=== PATIENT | male | born 1975 | race African-American/Black ===

== ENCOUNTER 2019-06-14 01:21 | Emergency (ER) | payer OTHER ==
[~2019-06-14] VITALS: Ht 175 cm; Wt 92.0 kg
[2019-06-14] MEDS ORDERED: PANTOPRAZOLE 40 MG (PROTONIX) VIAL IV STA (01:35)
[2019-06-14] MEDS ORDERED: NS IV 1000 ML 1,000 ML IV STA ×2 (01:35→03:10)
[2019-06-14] MEDS ORDERED: KETOROLAC 30 MG/ML VIAL IVP STA (01:35)
[2019-06-14] MEDS ORDERED: fentaNYL INJECTION 100 MCG/2 ML AMP IVP STA (01:35)
[2019-06-14 01:37] LABS: HEMATOCRIT 50 % (40-54); HEMOGLOBIN 16.6 G/DL (13.3-17.7); LYMPHOCYTES % (AUTO) 24 % (12-44); MEAN CORPUSCULAR HEMOGLOBIN 29 PG (25-34); MEAN CORPUSCULAR HGB CONC 34 G/DL (32-36); MEAN CORPUSCULAR VOLUME 88 FL (80-99); MEAN PLATELET VOLUME 8.5 FL (7.4-10.4); NEUTROPHILS % (AUTO) 55 % (42-75); PLATELET COUNT 392 10^3/uL (130-400); WHITE BLOOD COUNT 9.2 10^3/uL (4.3-11.0)
[2019-06-14 01:38] LABS: BASOPHILS % (AUTO) 0 % (0-10); EOSINOPHILS # (AUTO) 0.5 10^3/uL (0.0-0.3); EOSINOPHILS % (AUTO) 6 % (0-10); LYMPHOCYTES # (AUTO) 2.2 X 10^3 (1.0-4.0); MONOCYTES # (AUTO) 1.3 X 10^3 (0.0-1.0); MONOCYTES % (AUTO) 14 % (0-12); NEUTROPHILS # (AUTO) 5.1 X 10^3 (1.8-7.8)
--- NOTE | 2019-06-14 01:41 | ED Abdominal Pain ---
General Chief Complaint: Abdominal/GI Problems Stated Complaint: ABD PAIN Source of Information: Patient History of Present Illness Date Seen by Provider: Jun 14, 2019 Time Seen by Provider: 01:24 Initial Comments 43 yo M presenting with abdominal cramping and pain. He has had 2 days of diarrhea and cramping but it became worse about 2 hours ago. He woke up with epigastric and periumbilical pain. He was having multiple episodes of diarrhea in the last 2 days. he now has a bloated abdomen and feels like he has a lot of gas and pain in his abdomen. He denies any pain with urination. He has not seen any blood in his diarrhea. He has had nausea but no vomiting. He is in town for work from [employer] but has been sick and not able to work. he denies fever but has had chills. He has not taken anything for pain. He had some cottage cheese and a bottom steep tender today but that made his stomach feel worse so he stopped eating. Allergies and Home Medications Allergies Coded Allergies: No Known Drug Allergies (Unverified , 06/14/19) Home Medications Dicyclomine HCl 20 Mg Tablet, 20 MG PO Q6H PRN for abdominal pain/cramping Prescribed by: ERLIN BROOKE on 06/14/19 0313 Patient Home Medication List Home Medication List Reviewed: Yes Review of Systems Review of Systems Constitutional: chills; No fever; malaise EENTM: No Symptoms Reported Respiratory: No Symptoms Reported Cardiovascular: No Symptoms Reported Gastrointestinal: See HPI Genitourinary: No Symptoms Reported Musculoskeletal: no symptoms reported Skin: no symptoms reported Psychiatric/Neurological: No Symptoms Reported Past Ebenfzc-Ytszup-Wgtmed Hx Past Med/Social Hx: Reviewed Nursing Past Med/Soc Hx Patient Social History Alcohol Use: Denies Use Recreational Drug Use: Yes Drug of Choice: MARIJUANA Type Used: Smokeless Tobacco 2nd Hand Smoke Exposure: No Recent Foreign Travel: No Contact w/Someone Who Travel: No Recent Hopitalizations: No Physical Abuse: No Sexual Abuse: No Past Medical History Surgeries: Yes Appendectomy, Orthopedic Respiratory: No Cardiac: No Neurological: No Genitourinary: No Gastrointestinal: No Musculoskeletal: No Endocrine: No HEENT: No Cancer: No Psychosocial: No Integumentary: No Blood Disorders: No Physical Exam Vital Signs Vital Signs - First Documented 06/14/19 01:26 Pulse 100 Resp 20 B/P (MAP) 125/91 (102) Pulse Ox 98 O2 Delivery Room Air Capillary Refill : Height/Weight/BMI Height: '" Weight: lbs. oz. kg; BMI Method: General Appearance: WD/WN, moderate distress (moaning and complaining of abdominal pain and cramping with bloating and gas feeling) HEENT: PERRL/EOMI, pharynx normal Neck: non-tender, supple Respiratory: chest non-tender, lungs clear, normal breath sounds, no respiratory distress, no accessory muscle use Cardiovascular: normal peripheral pulses, regular rate, rhythm Gastrointestinal: soft, no pulsatile mass, tenderness (epigastric) Extremities: normal range of motion, normal capillary refill Neurologic/Psychiatric: aged or disabled carer II-XII nml as tested, alert, oriented x 3 Skin: normal color, warm/dry Progress/Results/Core Measures Results/Orders Lab Results Laboratory Tests Test 06/14/19 01:30 06/14/19 03:00 Range/Units White Blood Count 9.2 4.3-11.0 10^3/uL Red Blood Count 5.65 4.35-5.85 10^6/uL Hemoglobin 16.6 13.3-17.7 G/DL Hematocrit 50 40-54 % Mean Corpuscular Volume 88 80-99 FL Mean Corpuscular Hemoglobin 29 25-34 PG Mean Corpuscular Hemoglobin Concent 34 32-36 G/DL Red Cell Distribution Width 13.0 10.0-14.5 % Platelet Count 392 130-400 10^3/uL Mean Platelet Volume 8.5 7.4-10.4 FL Neutrophils (%) (Auto) 55 42-75 % Lymphocytes (%) (Auto) 24 12-44 % Monocytes (%) (Auto) 14 H 0-12 % Eosinophils (%) (Auto) 6 0-10 % Basophils (%) (Auto) 0 0-10 % Neutrophils # (Auto) 5.1 1.8-7.8 X 10^3 Lymphocytes # (Auto) 2.2 1.0-4.0 X 10^3 Monocytes # (Auto) 1.3 H 0.0-1.0 X 10^3 Eosinophils # (Auto) 0.5 H 0.0-0.3 10^3/uL Basophils # (Auto) 0.0 0.0-0.1 10^3/uL Sodium Level 136 135-145 MMOL/L Potassium Level 3.7 3.6-5.0 MMOL/L Chloride Level 98 98-107 MMOL/L Carbon Dioxide Level 24 21-32 MMOL/L Anion Gap 14 5-14 MMOL/L Blood Urea Nitrogen 8 7-18 MG/DL Creatinine 1.11 0.60-1.30 MG/DL Estimat Glomerular Filtration Rate > 60 BUN/Creatinine Ratio 7 Glucose Level 99 70-105 MG/DL Calcium Level 9.5 8.5-10.1 MG/DL Corrected Calcium 9.3 8.5-10.1 MG/DL Total Bilirubin 0.8 0.1-1.0 MG/DL Aspartate Amino Transf (AST/SGOT) 28 5-34 U/L Alanine Aminotransferase (ALT/SGPT) 28 0-55 U/L Alkaline Phosphatase 78 40-136 U/L Total Protein 8.0 6.4-8.2 GM/DL Albumin 4.3 3.2-4.5 GM/DL Lipase 21 8-78 U/L Serum Alcohol 22 H <10 MG/DL Urine Color YELLOW Urine Clarity CLEAR Urine pH 6.5 5-9 Urine Specific Taylor 1.025 H 1.016-1.022 Urine Protein TRACE NEGATIVE Urine Glucose (UA) NEGATIVE NEGATIVE Urine Ketones TRACE H NEGATIVE Urine Nitrite NEGATIVE NEGATIVE Urine Bilirubin 1+ H NEGATIVE Urine Urobilinogen 0.2 < = 1.0 MG/DL Urine Leukocyte Esterase NEGATIVE NEGATIVE Urine RBC (Auto) NEGATIVE NEGATIVE Urine RBC NONE /HPF Urine WBC NONE /HPF Urine Squamous Epithelial Cells 0-2 /HPF Urine Crystals NONE /LPF Urine Bacteria NEGATIVE /HPF Urine Casts NONE /LPF Urine Mucus MODERATE H /LPF Urine Culture Indicated NO Urine Opiates Screen NEGATIVE NEGATIVE Urine Oxycodone Screen NEGATIVE NEGATIVE Urine Methadone Screen NEGATIVE NEGATIVE Urine Propoxyphene Screen NEGATIVE NEGATIVE Urine Barbiturates Screen NEGATIVE NEGATIVE Ur Tricyclic Antidepressants Screen NEGATIVE NEGATIVE Urine Phencyclidine Screen NEGATIVE NEGATIVE Urine Amphetamines Screen POSITIVE H NEGATIVE Urine Methamphetamines Screen POSITIVE H NEGATIVE Urine Benzodiazepines Screen NEGATIVE NEGATIVE Urine Cocaine Screen NEGATIVE NEGATIVE Urine Cannabinoids Screen POSITIVE H NEGATIVE My Orders Orders - ERLIN BROOKE MD Comprehensive Metabolic Panel (06/14/19 01:28) Lipase (06/14/19 01:28) Ua Culture If Indicated (06/14/19 01:28) Ed Iv/Invasive Line Start (06/14/19 01:28) Cbc With Automated Diff (06/14/19 01:28) Ct Abdomen/Pelvis Wo (06/14/19 01:28) Drug Screen Stat (Urine) (06/14/19 01:28) Alcohol (06/14/19 01:28) Ns Iv 1000 Ml (Sodium Chloride 0.9%) (06/14/19 01:35) Ketorolac Injection (Toradol Injection) (06/14/19 01:35) Fentanyl Injection (Sublimaze Injection (06/14/19 01:35) Pantoprazole Injection (Protonix Injecti (06/14/19 01:35) Dicyclomine Injection (Bentyl Injection) (06/14/19 03:02) Dicyclomine Injection (Bentyl Injection) (06/14/19 03:06) Ns Iv 1000 Ml (Sodium Chloride 0.9%) (06/14/19 03:10) Vital Signs/I&O 06/14/19 06/14/19 01:26 03:43 Pulse 100 83 Resp 20 16 B/P (MAP) 125/91 (102) 140/86 Pulse Ox 98 99 O2 Delivery Room Air Room Air Progress Progress Note #1: Progress Note check labs and CT scan of abdomen/pelvis to evaluate his pain and bloating with cramping. Give IVF for hydration, Toradol and fentanyl for pain, Protonix for epigastric pain and possible gastritis, Zofran for nausea. Progress Note #2: Progress Note CBC and Chemistry do not show acute significant abnormality to account for his symptoms. His alcohol level is 22. He feels a little better after treatment in the ED. CT scan shows findings for gastroenteritis but no acute surgical abdomen findings. Progress Note #3: Progress Note UA shows mild concentration with Specific gravity of 1.025. Drug screen positive for methamphetamine and marijuana. Encouraged to push fluids and rest. Check with clinic if needed for continued concerns. Advised to avoid alcohol and drugs as they would just get him more dehydrated Diagnostic Imaging Diagonstic Imaging: CT Plain Films/CT/US/NM/MRI: abdomen, pelvis Comments Impression: Possible gastroenteritis. Radiologist Neal Tripathi MD. Read at 0214 and faxed at 1408. Reviewed: Reviewed [facility] Study Departure Impression Primary Impression: Viral gastroenteritis Additional Impressions: Abdominal bloating with cramps Methamphetamine abuse Alcohol intoxication Qualified Codes: F10.920 - Alcohol use, unspecified with intoxication, uncomplicated Disposition: 01 HOME, SELF-CARE Condition: Stable Departure-Patient Inst. Decision time for Depature: 03:13 Referrals: NO,LOCAL PHYSICIAN (PCP) Primary Care Physician [facility] [place] Instructions: Nausea and Vomiting, Adult (DC), Viral Gastroenteritis, Adult (DC), Polysubstance Abuse (DC), Gas and Bloating Add. Discharge Instructions: Keep sipping on fluids and try to stay well hydrated. Avoid alcohol and methamphetamines as they will just dehydrate you more while you are sick with the nausea and diarrhea. Follow up with clinic for continued problems/concerns All discharge instructions reviewed with patient and/or family. Voiced under standing. Scripts Dicyclomine HCl (Dicyclomine HCl) 20 Mg Tablet 20 MG PO Q6H PRN for abdominal pain/cramping for 7 Days, #28 TAB 0 Refills Prov: ERLIN BROOKE MD 06/14/19 RELIN BROOKE MD Jun 14, 2019 01:41
[2019-06-14 02:00] LABS: BILIRUBIN,TOTAL 0.8 MG/DL (0.1-1.0); BUN/CREATININE RATIO 7; CALCIUM 9.5 MG/DL (8.5-10.1); CARBON DIOXIDE 24 MMOL/L (21-32); CHLORIDE 98 MMOL/L (98-107); CREATININE SERUM 1.11 MG/DL (0.60-1.30); GFR ESTIMATED > 60; GLUCOSE 99 MG/DL (70-105); POTASSIUM 3.7 MMOL/L (3.6-5.0); SODIUM 136 MMOL/L (135-145)
[2019-06-14 02:01] LABS: ALANINE AMINOTRANSFERASE 28 U/L (0-55); ALBUMIN 4.3 GM/DL (3.2-4.5); ALKALINE PHOSPHATASE 78 U/L (40-136); LIPASE 21 U/L (8-78)
[2019-06-14] MEDS ORDERED: DICYCLOMINE 10 MG/ML (BENTYL) 2 ML AMP IM ONE (03:02)
[2019-06-14] MEDS ORDERED: DICYCLOMINE 10 MG/ML (BENTYL) 2 ML AMP IM STA (03:06)
[2019-06-14 03:10] LABS: BACTERIA,URINE NEGATIVE /HPF; BILIRUBIN,URINE 1+ (NEGATIVE); CLARITY,URINE CLEAR; COLOR,URINE YELLOW; GLUCOSE, URINE (UA) NEGATIVE (NEGATIVE); KETONES,URINE TRACE (NEGATIVE); LEUKOCYTE ESTERASE ,URINE NEGATIVE (NEGATIVE); NITRITE,URINE NEGATIVE (NEGATIVE); PH,URINE 6.5 (5-9); PROTEIN,URINE TRACE (NEGATIVE); SQUAMOUS EPITHELIAL CELL,UR 0-2 /HPF
[2019-06-14] MEDS ORDERED: DICY20TA10 PO (03:13)
[2019-06-14 03:14] LABS: AMPHETAMINE SCREEN, URINE POSITIVE (NEGATIVE); CANNABINOID SCREEN, URINE POSITIVE (NEGATIVE); METHAMPHETAMINE SCREEN URINE S POSITIVE (NEGATIVE)
[2019-06-14 03:15] LABS: BARBITURATE SCREEN URINE NEGATIVE (NEGATIVE); BENZODIAZEPINES SCREEN URINE NEGATIVE (NEGATIVE); COCAINE SCREEN URINE NEGATIVE (NEGATIVE); METHADONE STAT NEGATIVE (NEGATIVE); OPIATE SCREEN URINE NEGATIVE (NEGATIVE); OXYCODONE STAT NEGATIVE (NEGATIVE); PROPOXYPHENE STAT NEGATIVE (NEGATIVE); TRICYCLIC ANTIDEPRESSANTS SCRE NEGATIVE (NEGATIVE)
[2019-06-14 03:43] VITALS: BP 140/86
--- NOTE | 2019-06-14 06:32 | Diagnostic Imaging Report ---
PROCEDURE: CT abdomen and pelvis without contrast. TECHNIQUE: Multiple contiguous axial images were obtained through the abdomen and pelvis without the use of intravenous contrast. Auto Exposure Controls were utilized during the CT exam to meet ALARA standards for radiation dose reduction. INDICATION: Severe abdominal pain. COMPARISON: None available. FINDINGS: The lung bases are clear and the heart is normal in size. No pleural or pericardial effusion. The liver, gallbladder, spleen, pancreas, and adrenal glands are unremarkable. The kidneys are symmetric in size, without evidence of hydronephrosis or renal calculus. The visualized ureters are normal. There is marked distention of the stomach with retained fluid and partially digested food products. Nondilated loops of fluid-filled small bowel are demonstrated throughout the abdomen, with liquid stool noted throughout the colon. There is no evidence of obstruction and there is no focal inflammatory change. The appendix is not visualized and likely surgically absent given suture material in the region of the cecum. No pneumoperitoneum, abdominal free fluid, or loculated collection. No lymphadenopathy is appreciated. The aorta is nonaneurysmal. The bladder is decompressed and not well evaluated. The prostate gland is not enlarged. The abdominal wall is unremarkable. There are mild degenerative changes of the lumbar spine. No acute osseous abnormality is identified. IMPRESSION: There is moderate gastric distention. There are nondilated loops of fluid-filled small bowel throughout the abdomen, with liquid stool noted throughout the colon. There is no evidence of obstruction or focal inflammatory change. Findings are nonspecific and may reflect gastroenteritis. Findings are in agreement with initial teleradiology report. Dictated by: Dictated on workstation # [id number]
== END 2019-06-14 03:57 | disposition home or self-care (01) ==
LOC: ER FS 01:25
DX: A08.4 Viral intestinal infection, unspecified (principal); F15.10 Other stimulant abuse, uncomplicated; F10.129 Alcohol abuse with intoxication, unspecified; Z90.49 Acquired absence of other specified parts of digestive tract; Y90.1 Blood alcohol level of 20-39 mg/100 ml
CPT/HCPCS: 36415; 74176; 80053; 80306; 80320; 81000; 83690; 85025; 96361; 96372; 96374; 96375